=== PATIENT | female | born 2000 | race African-American/Black ===

== ENCOUNTER → 2018-07-14 | Day surgery (SDC) | payer OTHER ==
[~2018-07-14] MED LIST: HYDR10SY16 PO; IV RINGERS,LACTATED 1000ML 1,000 ML IV SCH; MIDAZOLAM HCL/PF 5 MG/5 ML VIAL. IV ONE; MIDAZOLAM HCL/PF 5 MG/5 ML VIAL. ONE; OMEP20TA63 PO; RANI150T21 PO; TRAZ-85 PO; fentaNYL PF VIAL 100 MCG/2 ML VIAL IV ONE; fentaNYL PF VIAL 100 MCG/2 ML VIAL ONE
[2018-07-14 17:33] LABS: U PREG PATIENT NEGATIVE (NEG)
[2018-07-14 17:53] VITALS: BP 121/73
== END | disposition home or self-care (01) ==
LOC: ENDOS 15:31
PROVIDERS: ATTEND Internal Medicine Gastroenterology
DX: K29.50 Unspecified chronic gastritis without bleeding (principal); F41.9 Anxiety disorder, unspecified; F32.9 Major depressive disorder, single episode, unspecified; Z79.899 Other long term (current) drug therapy
CPT/HCPCS: 43235; 81025; G0500; J2250; J3010

== ENCOUNTER → 2018-08-27 | Outpatient (CLI) | payer OTHER ==
[2018-07-14 17:53] VITALS: BP 121/73
[~2018-08-27] MED LIST changes: +ALBU2.5V8 INH; +DOCU-150 PO; -IV RINGERS,LACTATED 1000ML 1,000 ML IV SCH; -MIDAZOLAM HCL/PF 5 MG/5 ML VIAL. IV ONE; -MIDAZOLAM HCL/PF 5 MG/5 ML VIAL. ONE; +OXYC1TAB15 PO; +RANI-376 PO; -RANI150T21 PO; +TRAZ-118 PO; -TRAZ-85 PO; -fentaNYL PF VIAL 100 MCG/2 ML VIAL IV ONE; -fentaNYL PF VIAL 100 MCG/2 ML VIAL ONE
[2018-08-27 09:41] LABS: BASO % 1 % (0-3); EOS % 1 % (0-3); HEMOGLOBIN 12.6 g/dL (12.0-15.5); LYMPH # 1.5 x10^3/uL (1.0-4.8); LYMPH % 41 % (24-48); MEAN CORPUSCULAR HEMOGLOBIN 28 pg (25-35); MEAN CORPUSCULAR HGB CONC 33 g/dL (31-37); MEAN CORPUSCULAR VOLUME 83 fL (79-100); MONO # 0.2 x10^3/uL (0.0-1.1); MONO % 7 % (0-9); NEUT # 1.8 x10^3uL (1.8-7.7); NEUT % 51 % (31-73); PLATELET COUNT 270 x10^3/uL (140-400); RED BLOOD COUNT 4.59 x10^6/uL (3.50-5.40); RED CELL DISTRIBUTION WIDTH 16.5 % (11.5-14.5); WHITE BLOOD COUNT 3.6 x10^3/uL (4.0-11.0)
[2018-08-27 10:20] LABS: ALBUMIN 4.2 g/dL (3.4-5.0); CALCIUM 9.3 mg/dL (8.5-10.1); GFR 85.5; POTASSIUM 3.4 mmol/L (3.5-5.1); TOTAL BILIRUBIN 0.5 mg/dL (0.2-1.0)
== END | disposition home or self-care (01) ==
LOC: SURGPAT 09:01
PROVIDERS: ATTEND Surgery
DX: K80.20 Calculus of gallbladder without cholecystitis without obstruction (principal)
CPT/HCPCS: 36415; 80048; 82040; 82247; 85025

== ENCOUNTER 2018-08-31 06:10 | Day surgery (SDC) | payer OTHER ==
[~2018-08-31] VITALS: Ht 157.5 cm; Wt 58.1 kg
[~2018-08-31 06:10] MED LIST changes: -DOCU-150 PO; -OXYC1TAB15 PO
[2018-08-31] MEDS ORDERED: MORPHINE SULFATE 4 MG/ML VIAL. IV PRN (07:00)
[2018-08-31] MEDS ORDERED: PROCHLORPERAZINE 10 MG/2 ML VIAL. IV PRN (07:00)
[2018-08-31] MEDS ORDERED: IV RINGERS,LACTATED 1000ML 1,000 ML IV SCH (07:00)
[2018-08-31] MEDS ORDERED: fentaNYL PF VIAL 100 MCG/2 ML VIAL IV PRN (07:00)
[2018-08-31] MEDS ORDERED: ONDANSETRON PF 4 MG/2 ML VIAL. IV PRN (07:00)
[2018-08-31] MEDS ORDERED: LIDOCAINE 1% PF 2 ML VIAL. ID PRN (07:00)
[2018-08-31] MEDS ORDERED: HYDROmorphone 2 MG/ML VIAL IV PRN (07:00)
[2018-08-31] MEDS ORDERED: GLUCAGON,HUMAN RECOMBINANT 1 MG/ML VIAL. ONE (07:11)
[2018-08-31] MEDS ORDERED: BUPIVAC MPF-EPI 0.5%-1:200000 30 ML VIAL. ONE (07:11)
[2018-08-31] MEDS ORDERED: SURGICEL HEMOSTAT 4X8 EACH. ONE (07:11)
[2018-08-31] MEDS ORDERED: IOHEXOL 300 MG/ML 100ML VIAL. ONE (07:11)
[2018-08-31] MEDS ORDERED: DEXAMETHASONE SOD PHOS 20 MG/5 ML VIAL. ONE (07:25)
[2018-08-31] MEDS ORDERED: PROPOFOL 20 ML IV ONE ×2 (07:25→08:57)
[2018-08-31] MEDS ORDERED: LIDOCAINE 2% PF 5 ML VIAL. ONE (07:25)
[2018-08-31] MEDS ORDERED: ONDANSETRON PF 4 MG/2 ML VIAL. ONE (07:25)
[2018-08-31] MEDS ORDERED: MIDAZOLAM HCL/PF 2 MG/2 ML VIAL. ONE (07:26)
[2018-08-31] MEDS ORDERED: fentaNYL PF VIAL 100 MCG/2 ML VIAL ONE ×2 (07:26→08:53)
[2018-08-31] MEDS ORDERED: ROCURONIUM 50 MG/5 ML VIAL. ONE (07:26)
[2018-08-31] MEDS ORDERED: ePHEDrine PF IN SALINE 50 MG/5 ML DISP.SYRIN IV ONE (08:24)
[2018-08-31] MEDS ORDERED: FAMOTIDINE 20 MG/2 ML VIAL ONE (08:38)
[2018-08-31] MEDS ORDERED: ESMOLOL 100 MG/10 ML VIAL. IV ONE (08:38)
[2018-08-31] MEDS ORDERED: diphenhydrAMINE 50 MG/ML VIAL ONE (08:39)
[2018-08-31] MEDS ORDERED: KETOROLAC 30 MG/ML INJ FOR OR. INJ ONE (08:46)
[2018-08-31] MEDS ORDERED: GLYCOPYRROLATE 1 MG/5 ML VIAL. ONE (08:46)
[2018-08-31] MEDS ORDERED: NEOSTIGMINE 10 MG/10 ML VIAL. ONE (08:46)
[2018-08-31 08:51] LABS: U PREG PATIENT NEGATIVE (NEG)
[2018-08-31] MEDS ORDERED: SEVOFLURANE 61 TO 120 MINUTES. IH ONE (08:57)
--- NOTE | 2018-08-31 09:04 | RAD ---
Intraoperative cholangiogram, 08/31/2017: HISTORY: Cholecystectomy 4 spot films from surgery are presented for review. Contrast has been injected into the cystic duct remnant. 0.22 minutes of fluoroscopy time was utilized. There is good flow contrast into the duodenum at the ampulla. No filling defect is seen in the common duct to suggest a retained calculus. The incompletely opacified intrahepatic ducts are unremarkable. No contrast extravasation is seen. IMPRESSION: No significant abnormality is detected. Electronically signed by: Vish Brandon MD (08/31/2018 9:00 AM) [facility]
--- NOTE | 2018-08-31 09:23 | PDOC ---
BRIEF OPERATIVE NOTE Date: Aug 31, 2018 Pre-Op Diagnosis cholelithiasis Post-Op Diagnosis same Procedure Performed l/s with cait Surgeon Bernabe Anesthesia Type: General Blood Loss 10cc IV Fluid 1000cc Specimens Obtained GB Findings supple GB with stone, normal grams Complications none Operative Note WK # [id number] JONAH ROSEN MD Aug 31, 2018 09:23
--- NOTE | 2018-08-31 09:30 | DISCH ---
DISCHARGE INSTRUCTIONS Condition on Discharge Condition on Discharge: Stable Activity After Discharge Activity Instructions for Disc: Activity as tolerated, Avoid exertion Lifting Instructions after Dis: No heavy lifting Driving Instructions after Dis: Do not drive (3-4 days) Diet after Discharge Diet after Discharge: Regular Wound Incision Care Wound/Incision Care: Ice to area for comfort Other wound/incision instructi: december shower Friday Follow-Up Follow up with: Bernabe 09/10 JONAH ROSEN MD Aug 31, 2018 09:30
--- NOTE | 2018-08-31 09:37 | OP ---
DATE OF SURGERY: 08/31/2018 PREOPERATIVE DIAGNOSIS: Cholelithiasis. POSTOPERATIVE DIAGNOSIS: Cholelithiasis. PROCEDURE: Laparoscopic cholecystectomy with cholangiograms. SURGEON: Jonah Rosen MD ANESTHESIA: General endotracheal. BLOOD LOSS: 10 mL. IV FLUIDS: 1 liter. 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 Ultrasound shows stone. She is brought for cholecystectomy. OPERATIVE FINDINGS: The liver was smooth and sharp. The gallbladder was supple. Cholangiograms were normal. Visual inspection of the remainder of the abdomen failed to reveal obvious abnormalities. OPERATIVE REPORT: The patient brought to the operating suite, given a general endotracheal anesthetic and the abdomen prepped and draped in usual sterile fashion. An infraumbilical incision was infiltrated with local anesthetic, incised and a 5 mm Visiport used to safely gain access into the abdominal cavity. Pneumoperitoneum established. Camera inserted. Inspection carried out with results as noted above. With the table in reverse Trendelenburg rolled to the left, the epigastric port was placed under direct vision. Two "alligator" graspers were used in the mid clavicular location and lateral location. Gallbladder retracted superolaterally and the cystic duct was exposed. The cystic artery was isolated, clipped and divided to expose the cystic duct for cholangiograms. The duct was clipped on the gallbladder side. Cholangiograms were made. These were normal. In light of this, the catheter was removed. The cystic duct was clipped x 3 and divided, taking care to avoid injury or compromise to the common duct. A small posterior artery intimately adjacent to the cystic duct was controlled with 2 clips. The gallbladder freed from the bed with cautery dissection and placed in an EndoCatch bag. Good hemostasis was present. No evidence of bile leak. Table returned to level. Gallbladder delivered through the epigastric incision, which was then closed with interrupted 0 Vicryl suture. Intra-abdominal pressure decreased to 6 cm of water. No bleeding from the epigastric closure site or from the midclavicular or lateral grasper sites. Abdomen decompressed, camera slowly removed, no bleeding seen. Skin incisions closed with subcuticular 4-0 Monocryl. Steri-Strips and sterile dressings applied. The patient awakened from her anesthetic and taken to the recovery room in satisfactory condition. JONAH ROSEN MD DR: JANNETTE/sebastian JOB#: [id number] / [id number]
[2018-08-31] MEDS: fentaNYL PF VIAL 100 MCG/2 ML VIAL IV PRN ×2 (09:43→09:46)
[2018-08-31] MEDS ORDERED: PROCHLORPERAZINE 10 MG/2 ML VIAL. ONE (09:44)
[2018-08-31] MEDS ORDERED: OXYC1TAB15 PO (09:58)
[2018-08-31] MEDS ORDERED: DOCU-150 PO (10:00)
[2018-08-31] MEDS ORDERED: oxyCODONE/APAP 5/325 1 TAB TABLET PO ONE (10:30)
[2018-08-31 11:05] VITALS: BP 111/62
[2018-08-31] MEDS ORDERED: PROPOFOL 0 ML IV ONE (11:50)
--- NOTE | 2018-09-01 17:09 | PATHOLOGY ---
[facility] Accession Number: [id number] . 01 Material submitted: . GALLBLADDER AND CONTENTS . 01 Clinical history: . Cholelithiasis . 02 Diagnosis: Gallbladder, laparoscopic cholecystectomy: - Cholelithiasis. - Chronic cholecystitis. - Reactive changes of gallbladder neck lymph node. (JPM:analytical lead; 09/01/2018) MBR/09/01/2018 . 02 Comment: There is no evidence of malignancy. (JPM:analytical lead; 09/01/2018) . 02 Electronically signed: . Yared Mahmood MD, Pathologist NPI- [id number] . 01 Gross description: . The specimen is received in formalin, labeled "Osito Malcolm, gallbladder and contents", is an intact, distended gallbladder measuring 8.3 x 2.2 x 2.0 cm with a glistening, smooth, purple-green serosa. Within the cystic duct region there is a granda-pink, rubbery lymph node measuring 0.6 x 0.5 x 0.3 cm. The cystic duct is impacted by a multifaceted predominantly yellow calculus and is not dilated. The lumen is filled with yellow-green viscous bile and multiple multifaceted yellow calculi and its fragments measuring 4.7 x 4.0 x 1.5 cm in aggregate. The mucosa is granda-brown, granular and the wall has an average thickness of 0.1 cm. No discrete masses are identified. Manager Planning tissue is submitted in A1. ([facility]; 08/31/2018) SHS/SHS . 02 Pathologist provided ICD-10: K80.10 . 02 CPT . 019330 Specimen Comment: A courtesy copy of this report has been sent to Specimen Comment: [phone], . Specimen Comment: Report sent to and Specimen Comment: A duplicate report has been generated due to demographic updates. Performed at: 01 [facility] [address] [id number] MD Andrade Fisher MD Phone: [phone] Performed at: 02 [facility] [address] [place], [place] [id number] MD Yared Mahmood MD Phone: [phone]
== END 2018-08-31 11:40 | disposition home or self-care (01) ==
LOC: SURG 06:10
PROVIDERS: ATTEND Surgery
DX: K80.10 Calculus of gallbladder with chronic cholecystitis without obstruction (principal); F41.9 Anxiety disorder, unspecified; F32.9 Major depressive disorder, single episode, unspecified; Z88.8 Allergy status to other drugs, medicaments and biological substances; Z79.899 Other long term (current) drug therapy; Z98.890 Other specified postprocedural states
CPT/HCPCS: 47563; 74300; 81025; 88304; A7015; J0696; J0780; J1100; J1200; J1885; J2001; J2250; J2405; J2704; J2710; J3010; J3490; J7030; J7120; Q9967; J1610